=== PATIENT | female | born 1965 | race American Indian/Alaskan Native ===

== ENCOUNTER 2018-01-13 10:17 | Day surgery (SDC) | payer OTHER ==
[2018-01-13] MEDS ORDERED: DIPRIVAN 10 MG/ML IV ONE ×2 (10:58)
--- NOTE | 2018-01-13 10:58 | Anesthesia Consultation ---
Anesthesia Consult and Med Hx Date of service: 01/13/18 - Airway Anesthetic Teeth Evaluation: Good, Chipped (left front tooth ) ROM Head & Neck: Adequate Mental/Hyoid Distance: Adequate Mallampati Class: Class II Intubation Access Assessment: Probably Good - Pulmonary Exam CTA: Yes - Cardiac Exam Cardiac Exam: RRR - Pre-Operative Health Status ASA Pre-Surgery Classification: ASA2 Proposed Anesthetic Plan: MAC - Cardiovascular System Hx Hypertension: Yes (pre, no meds ) - Endocrine Hx Non-Insulin Dependent Diabetes: Yes (diet controlled)
--- NOTE | 2018-01-13 10:59 | Anesthesia Day of Surgery ---
Anesthesia Day of Surgery - Day of Surgery Patient Examined: Yes Patient H&P Reviewed: Yes Patient is NPO: Yes
[2018-01-13] MEDS ORDERED: NACL 0.9% 1000 ML 1,000 ML IV SCH (11:00)
[2018-01-13] MEDS ORDERED: WATER FOR IRRIG STERILE IR ONE (11:12)
[2018-01-13] MEDS ORDERED: XYLOCAINE TOPICAL 2% 5ML ONE (11:34)
--- NOTE | 2018-01-13 11:38 | Post Operative Note ---
Pre-op diagnosis: screening colonoscopy, hemorrhoids Post-op diagnosis: other (small colon polyp removed with cold snare, large internal hemorrhoids s/p banding) Findings: 1. small colon polyp removed with cold snare 2. Internal hemorrhoids (large) s/p banding Procedure: Colonoscopy with snare polypectomy and hemorrhoidal banding Anesthesia: MAC Surgeon: HAM RAYA Estimated blood loss: minimal Pathology: list (Jar A - descending colon polyp) Specimen disposition: to lab Condition: stable Disposition: same day
--- NOTE | 2018-01-13 11:41 | Operative Report ---
Operative Report Operative Report: Colonoscopy Procedure Note with snare polypectomy and hemorrhoidal banding Date of procedure: 01/13/2018 Endoscopist: David Zheng Pre-op diagnosis: screening colonoscopy, hemorrhoids Post-op diagnosis: small colon polyp removed, large internal hemorrhoids s/p banding Anesthesia: MAC Complications: No immediate complications Estimated blood loss: minimal Procedure: After consent was obtained, the patient was placed in the left lateral decubitus position. The fujinon colonoscope was inserted into the patient's rectum under direct vision, and advanced to the cecum without difficulty. The patient tolerated the procedure well. The views of the mucosa were good. The quality of prep was good. The patient's vital signs were monitored continuously throughout the procedure. Findings: There was one sessile polyp, ~4-5 mm, in the descending colon. The polyp was removed with cold snare polypectomy and retrieved. There were large internal hemorrhoids visualized on retroflexion view. Four bands were placed successfully without immediate complications. Impression: 1. Small colon polyp removed with cold snare 2. Large internal hemorrhoids s/p banding Recommendations: -follow-up pathology -high fiber diet daily -miralax daily to avoid constipation/straining -repeat colonoscopy for surveillance in 5 years -return to GI clinic in 1-2 months
[2018-01-13 12:19] VITALS: BP 158/80
== END 2018-01-13 10:18 | disposition home or self-care (01) ==
LOC: GIO 10:17
PROVIDERS: ATTEND Internal Medicine Gastroenterology
DX: Z12.11 Encounter for screening for malignant neoplasm of colon (principal); D12.2 Benign neoplasm of ascending colon; K64.8 Other hemorrhoids; I10 Essential (primary) hypertension; E11.9 Type 2 diabetes mellitus without complications
CPT/HCPCS: 45385; 45398; 81025; 82962; 88305; J2704; J7030

== ENCOUNTER 2018-05-31 09:36 | Day surgery (SDC) | payer OTHER ==
[~2018-05-31 09:36] MED LIST: WATER FOR IRRIG STERILE IR ONE
[2018-05-31] MEDS ORDERED: DIPRIVAN 10 MG/ML IV ONE ×2 (09:59)
[2018-05-31] MEDS ORDERED: NACL 0.9% 1000 ML 1,000 ML IV SCH (10:00)
[2018-05-31] MEDS ORDERED: XYLOCAINE TOPICAL 2% 5ML ONE (10:35)
[2018-05-31] MEDS ORDERED: XYLOCAINE 2% UROJET ONE (10:35)
--- NOTE | 2018-05-31 10:42 | Post Operative Note ---
Pre-op diagnosis: internal hemorrhoids, hematochezia Post-op diagnosis: same Findings: internal hemorrhoids (medium sized) s/p banding x 2 Procedure: flex sig with banding of hemorrhoids Anesthesia: MAC Surgeon: HAM RAYA Estimated blood loss: minimal Pathology: none Condition: stable Disposition: same day
--- NOTE | 2018-05-31 10:47 | Operative Report ---
Operative Report Operative Report: Flexible Sigmoidoscopy Procedure Note with Banding Date of procedure: 05/31/2018 Endoscopist: David Zheng Pre-op diagnosis: Hemorrhoids, hematochezia Post-op diagnosis: internal hemorrhoids s/p banding (x2), external hemorrhoid Anesthesia: MAC Complications: No immediate complications Estimated blood loss: minimal Procedure: After consent was obtained, the patient was placed in the left lateral decubitus position. The fujinon endoscope was inserted under direct vision into the rectum, and advanced to the sigmoid without difficulty. The patient tolerated the procedure well. The views of the mucosa were good. Patient's vital signs were monitored continuously throughout the procedure. Findings: There were medium sized internal hemorrhoids visualized on retroflexion view. Two bands were placed proximal to dentate line. Otherwise, the exam was normal to sigmoid colon. Impression: 1. Internal hemorrhoids s/p banding as above. Recommendations: -bowel regimen/miralax daily to avoid constipation/straining -follow-up in GI clinic as scheduled
[2018-05-31 11:10] VITALS: BP 143/82
== END 2018-05-31 09:37 | disposition home or self-care (01) ==
LOC: GIO 09:36
PROVIDERS: ATTEND Internal Medicine Gastroenterology
DX: K64.8 Other hemorrhoids (principal); K64.4 Residual hemorrhoidal skin tags; K59.00 Constipation, unspecified; I10 Essential (primary) hypertension; E11.9 Type 2 diabetes mellitus without complications; Z79.899 Other long term (current) drug therapy; Z87.891 Personal history of nicotine dependence
CPT/HCPCS: 45350; 82962; J2704; J7030